=== PATIENT | female | born 1960 | race Caucasian/White ===

== ENCOUNTER 2016-12-07 14:12 | Emergency (ER) | payer OTHER ==
[2016-12-07] MEDS ORDERED: DUONEB INH ONE (18:10)
[2016-12-07] MEDS ORDERED: ALBUTEROL HFA INH ONE (18:25)
== END 2016-12-07 18:47 | disposition home or self-care (01) ==
LOC: ER 14:12
DX: J20.9 Acute bronchitis, unspecified (principal)
CPT/HCPCS: 71020; 94640